=== PATIENT | female | born 1975 ===

== ENCOUNTER 2022-12-03 21:21 | Observation (INO) | payer BC, OTHER ==
[2022-12-03 21:33] VITALS: BMI 25.4
[2022-12-03] MEDS ORDERED: SODIUM CHLORIDE 0.9% 500 ML INFUS.BAG IV ONE (21:36)
[2022-12-03 21:57] LABS: EPI CELLS 14 /uL (0-25.1); HCG,QUALITATIVE URINE Negative; HYALINE CASTS 0 /uL (0-3.1); PH,URINE 5.5 (5.0-8.0); URINE APPEARANCE CLEAR; URINE BACTERIA 56 /uL (0-1359); URINE BILIRUBIN NEGATIVE (NEGATIVE); URINE COLOR YELLOW; URINE GLUCOSE (UA) NEGATIVE (NEGATIVE); URINE KETONE NEGATIVE (NEGATIVE); URINE LEUK ESTERASE NEGATIVE (NEGATIVE); URINE NITRITE NEGATIVE (NEGATIVE); URINE PROTEIN NEGATIVE (NEGATIVE); URINE RBC 149 /uL (0-23.9); URINE UROBILINOGEN 0.2 mg/dL (0.2-1.0); URINE WBC 9 /uL (0-25.8)
[2022-12-03] MEDS ORDERED: METOCLOPRAMIDE HCL INJECTION 10 MG/2 ML VIAL IVPB ONE (22:00)
[2022-12-03] MEDS ORDERED: hydrOXYzine PAMOATE 25 MG CAPSULE (FP) PO ONE ×2 (22:00→22:06)
[2022-12-03 22:05] LABS: BASO % 0.4 % (0-2.0); EOS % 0.6 % (0-4.5); HEMATOCRIT 33.4 % (32.4-45.2); LYMPH % 17.9 % (8-40); MCH 26.8 pg (25.7-33.7); MCHC 32.9 g/dl (32.0-36.0); MEAN CELL VOLUME 81.5 fl (80-96); MEAN PLT VOLUME 8.8 fl (7.5-11.1); MONO % 4.8 % (3.8-10.2); NEUT % 76.3 % (42.8-82.8); PLATELET COUNT 296 10^3/uL (134-434); RDW 13.9 % (11.6-15.6); WHITE BLOOD COUNT 8.7 K/mm3 (4.0-10.0)
[2022-12-03] MEDS ORDERED: METOCLOPRAMIDE HCL INJECTION 10 MG/2 ML VIAL ONE (22:06)
[2022-12-03 22:17] LABS: ALBUMIN 3.7 g/dl (3.4-5.0)
[2022-12-03 22:18] LABS: BLOOD UREA NITROGEN 11.4 mg/dL (7-18); MAGNESIUM 1.9 mg/dL (1.8-2.4)
[2022-12-03 22:20] LABS: CREATININE 0.8 mg/dL (0.55-1.3)
[2022-12-03 22:22] LABS: TOT PROT 7.6 g/dl (6.4-8.2)
[2022-12-03 22:25] LABS: INR 0.97 (0.83-1.09); PROTHROMBIN TIME (PATIENT) 11.2 SEC (9.7-13.0)
[2022-12-03 22:28] LABS: ACTIVATED PTT 26.9 SECONDS (25.2-36.5)
[2022-12-03] MEDS ORDERED: LORazepam 2 MG TABLET PO ONE (22:46)
[2022-12-03] MEDS ORDERED: LORazepam 1 MG TABLET ONE (22:47)
[2022-12-03 23:16] LABS: BILIRUBIN,TOTAL 0.5 mg/dL (0.2-1)
[2022-12-04] MEDS ORDERED: ACETAMINOPHEN 325 MG TABLET (FP) PO PRN (04:48)
[2022-12-04 10:20] VITALS: BP 107/74; PULSE 84; RESP 18; TEMP 98.2
== END 2022-12-04 10:45 | disposition home or self-care (01) ==
LOC: JER 21:21 → JERBED 12-04 02:01
PROVIDERS: ADMIT Internal Medicine; ATTEND Nurse Practitioner Acute Care
PROC: 3E033GC Introduction of Other Therapeutic Substance into Peripheral Vein, Percutaneous Approach (ICD-10-PCS; principal; 2022-12-04)
PROC: 3E0337Z Introduction of Electrolytic and Water Balance Substance into Peripheral Vein, Percutaneous Approach (ICD-10-PCS; 2022-12-04)
DX: F41.9 Anxiety disorder, unspecified (principal); R53.1 Weakness; R55 Syncope and collapse; G25.81 Restless legs syndrome; R94.31 Abnormal electrocardiogram [ECG] [EKG]; Z29.8 Encounter for other specified prophylactic measures
CPT/HCPCS: 0241U-QW; 36415; 70450-TC; 71046-TC-FY; 80053; 81003; 83735; 84443; 84484; 84703; 85025; 85610; 85730; 86850; 86900; 86901; 87077; 87086; 93005; 93010; 99285-25; G0378